=== PATIENT | male | born 1965 | race Caucasian/White ===

== ENCOUNTER 2021-07-28 08:17 | Emergency (ER) | payer OTHER ==
[~2021-07-28] VITALS: Ht 175.3 cm; Wt 83.9 kg
[2021-07-28 08:17] VITALS: BP_SYST 131
--- NOTE | 2021-07-28 08:17 | NUR ---
BROUGHT BACK TO BED IN HALLWAY, TRIAGED. REPORT GIVEN TO FERNANDO
--- NOTE | 2021-07-28 08:25 | NUR ---
PT STATES THAT WHILE AT THE [employer] WORKING YESTERDAY, MOVING HEAVY BOOKCASE, PT INJURED RIGHT SHOULDER. STATES HE HEARD A "POP" AND NOW WITH ANY MOVEMENT, HE HEARS "CLICKING". PT STATES LIMITED ROM DUE TO PAIN. STATES PAIN IS "ON TOP OF SHOULDER".
--- NOTE | 2021-07-28 08:43 | NUR ---
TAKEN TO RADIOLOGY AMBULATORY
--- NOTE | 2021-07-28 08:58 | NUR ---
DR HAYDEN AT BEDSIDE FOR EVALUATION
[2021-07-28] MEDS ORDERED: IBUP-1969 PO (09:14)
[2021-07-28] MEDS ORDERED: TRAM50TA PO (09:14)
--- NOTE | 2021-07-28 09:20 | NUR ---
Patient given written and verbal discharge instructions and verbalizes understanding. ER MD discussed with patient the results and treatment provided. Patient in stable condition. ID arm band removed. Rx of IBUPROFEN, TRAMADOL given. Patient educated on pain management and to follow up with PMD. Pain Scale 1/10. Opportunity for questions provided and answered. Medication side effect fact sheet provided.
--- NOTE | 2021-07-28 09:46 | NUR ---
Note undone in EDM - 07/28/21 at 0947 [facility] Patient given written and verbal discharge instructions and verbalizes understanding. ER discussed with patient the results and treatment provided. Patient in stable condition. ID arm band removed. Rx of IBUPROFEN, TRAMADOL given. Patient educated on pain management and to follow up with PMD. Pain Scale 1/10. Opportunity for questions provided and answered. Medication side effect fact sheet provided.
== END 2021-07-28 09:20 | disposition home or self-care (01) ==
LOC: SED 08:17
DX: M25.511 Pain in right shoulder (principal); Z88.5 Allergy status to narcotic agent
CPT/HCPCS: 73030; 99283